=== PATIENT | male | born 1975 | race African-American/Black ===

== ENCOUNTER 2023-01-11 20:54 | Emergency (ER) | payer BC, OTHER ==
[~2023-01-11] VITALS: Ht 182.9 cm; Wt 88.0 kg
[2023-01-11 20:58] VITALS: O2SAT 97
[2023-01-11] MEDS ORDERED: ACETAMINOPHEN ES 500 MG TABLET ONE (21:24)
[2023-01-11] MEDS ORDERED: ONDANSETRON ODT 4 MG TAB.RAPDIS ONE (21:24)
[2023-01-11] MEDS ORDERED: ONDANSETRON ODT 4 MG TAB.RAPDIS SL ONE (21:30)
[2023-01-11] MEDS ORDERED: ACETAMINOPHEN ES 500 MG TABLET PO ONE (21:30)
[2023-01-11] MEDS ORDERED: OSELTAMIVIR PHOSPHATE 75 MG CAPSULE ONE (21:48)
[2023-01-11] MEDS ORDERED: BENZ-13 PO (21:54)
[2023-01-11] MEDS ORDERED: OSEL75CA18 PO (21:54)
[2023-01-11] MEDS ORDERED: OSELTAMIVIR PHOSPHATE 75 MG CAPSULE PO ONE (22:00)
== END 2023-01-11 22:00 | disposition home or self-care (01) ==
LOC: ER 21:00
DX: J06.9 Acute upper respiratory infection, unspecified (principal); Z79.899 Other long term (current) drug therapy; Z86.718 Personal history of other venous thrombosis and embolism; Z20.822 Contact with and (suspected) exposure to COVID-19
CPT/HCPCS: A4606; A4663; A9150; Q0162